=== PATIENT | male | born 1985 | race Caucasian/White ===

== ENCOUNTER 2024-02-17 08:28 | Observation (INO) ==
[~2024-02-17 08:28] MED LIST: Metoclopramide 5 MG/ML VIAL (10 mg) IV PRN; NS 0.45% 1000 ml BAG 1,000 ML IV SCH; Naloxone 0.4 mg VIAL 0.4 mg/ml 1 ml VIAL IV PRN; Ondansetron 4 mg VIAL 2 MG/ML 2 ml VIAL IV PRN
[2024-02-17] MEDS ORDERED: Tranexamic Acid 1 GM/100ML BAG 2,000 MG/200 ML BAG IV ONE (09:15)
[2024-02-17] MEDS ORDERED: ceFAZolin 2 GM PREMIX 2 GM/50 ML BAG ONE (09:15)
[2024-02-17] MEDS ORDERED: Scopolamine 1 mg/72hr PATCH ONE (09:25)
[2024-02-17] MEDS ORDERED: Midazolam 2 mg/2 ml VIAL 1 mg/ml 2 ml VIAL (2 mg) ONE ×2 (09:35→10:49)
[2024-02-17] MEDS ORDERED: Lidocaine 2% PF 5 ML VIAL ONE ×2 (09:36→10:56)
[2024-02-17] MEDS: Scopolamine 1 mg/72hr PATCH TRANSDERM ONE (09:43)
[2024-02-17] MEDS: Lactated Ringers 1000 ml BAG 1,000 ML IV SCH ×2 (09:43→15:52)
[2024-02-17] MEDS: Buffered Lidocaine 1% SYRIN 1 ml INTRADERM ONE (09:43)
[2024-02-17] MEDS ORDERED: Sodium Citrate/Citric Acid LIQ 15 ML UDC ONE (09:49)
[2024-02-17 09:50] LABS: Rapid COVID-19 Molecular Undetected (Undetected)
[2024-02-17 10:13] LABS: ABS Basophils 0.1 10^3/uL (0.0-0.1); ABS Eosinophils 0.3 10^3/uL (0.0-0.5); ABS Monocytes 0.8 10^3/uL (0.0-1.1); ABS Neutrophils 5.5 10^3/uL (1.5-7.6); ABS Nucleated RBC 0.01 10^3/ul; Hemoglobin 13.8 g/dL (13.2-16.3); Lymphocyte % 22.9 %; Mean Corpuscular Hemoglobin 29.1 pg (27-33); Mean Corpuscular Hgb Conc 32.9 g/dL (31-36); Mean Corpuscular Volume 88.4 fL (80-97); Mean Platelet Volume 8.8 fL (7.5-11.2); Nucleated Red Blood Cells % 0.1 %/100WBC (0.0-0.8); Platelet Count 206 10^3/uL (150-450); Red Blood Count 4.76 10^6/uL (4.06-5.63); Red Cell Distribution Width 13.7 % (12-17); White Blood Count 8.6 10^3/uL (3.6-10.2)
[2024-02-17 10:29] LABS: Albumin 4.1 g/dL (3.2-5.2); Albumin/Globulin Ratio 1.3 (1-3); Creatinine, Serum 0.96 mg/dL (0.67-1.17); Globulin 3.1 g/dL (2-4); Potassium 3.9 mmol/L (3.5-5.0); Total Bilirubin 0.4 mg/dL (0.2-1.0); Total Protein 7.2 g/dL (6.4-8.9); eGFR CKD-EPI 103.1 (>60)
[2024-02-17] MEDS ORDERED: ROPIVACAINE 5 MG/ML 30 ML BTL (0.5%) ONE (10:35)
[2024-02-17 10:36] LABS: Activated Partial Thrombo Time 36.1 seconds (26.0-38.0); INR 0.98 (0.83-1.13)
[2024-02-17] MEDS ORDERED: fentaNYL 100 mcg/2 ml 50 MCG/ML VIAL ONE ×2 (11:16→15:11)
[2024-02-17] MEDS ORDERED: Propofol 10 MG/ML 20 ML BTL ONE ×2 (11:50→12:46)
[2024-02-17] MEDS ORDERED: Glycopyrrolate IV 0.2 MG/ML 1 ML VIAL ONE (11:53)
[2024-02-17] MEDS ORDERED: Ondansetron 4 mg VIAL 2 MG/ML 2 ml VIAL ONE (12:00)
[2024-02-17] MEDS ORDERED: Dexamethasone IV 4 MG/ML VIAL 1 ml VIAL ONE (12:00)
[2024-02-17] MEDS ORDERED: KETAMINE HCL 10 MG/ML 20 ml VIAL (200 MG) ONE (12:06)
[2024-02-17] MEDS: Acetaminophen IV 1 GM/100ML 1,000 MG/100 ML BAG IV ONE (13:53)
[2024-02-17] MEDS ORDERED: Morphine 2 MG/ML SYRINGE IV PRN (13:57)
[2024-02-17] MEDS ORDERED: Ondansetron ODT 4 mg TAB 4 MG TAB PO PRN (13:57)
[2024-02-17] MEDS ORDERED: Lactulose 30 ml UDC PO PRN (13:57)
[2024-02-17] MEDS ORDERED: Calcium Carb (TUMS) 500 mg CHEW TAB PO PRN (13:57)
[2024-02-17] MEDS ORDERED: Ondansetron 4 mg VIAL 2 MG/ML 2 ml VIAL IV PRN (13:57)
[2024-02-17] MEDS ORDERED: Magnesium Hydroxide LIQ 30 ML UDC PO PRN (13:57)
[2024-02-17] MEDS ORDERED: fentaNYL 250 mcg/5 ml 50 MCG/ML 5 ml VIAL (250 MCG) ONE (15:10)
[2024-02-17] MEDS: fentaNYL 100 mcg/2 ml 50 MCG/ML VIAL IV PRN (15:12)
[2024-02-17] MEDS: ceFAZolin 2 GM in NS PREMIX 2 GM/100 ML BAG IVPB SCH (15:52)
[2024-02-17] MEDS: ceFAZolin 2 GM PREMIX 2 GM/50 ML BAG IV SCH (19:14)
[2024-02-17] MEDS: Magnesium Hydroxide LIQ 30 ML UDC PO SCH (19:17)
[2024-02-18 05:36] LABS: Hematocrit 34.5 % (38-53); Hemoglobin 11.6 g/dL (13.2-16.3); Mean Platelet Volume 8.9 fL (7.5-11.2); Platelet Count 201 10^3/uL (150-450)
[2024-02-18 06:21] LABS: Calcium 8.6 mg/dL (8.6-10.3); Creatinine, Serum 0.89 mg/dL (0.67-1.17); Potassium 4.3 mmol/L (3.5-5.0); eGFR CKD-EPI 111.8 (>60)
[2024-02-18] MEDS: Vitamin THERAPEUTIC TAB PO SCH (09:08)
[2024-02-18 10:12] VITALS: BP 119/72
== END 2024-02-18 14:55 | disposition home or self-care (01) ==
LOC: SSU 08:28 → OR 08:28
PROVIDERS: ADMIT Orthopaedic Surgery Adult Reconstructive Orthopaedic Surgery; ATTEND Orthopaedic Surgery Adult Reconstructive Orthopaedic Surgery